=== PATIENT | female | born 1995 | race Two or more races ===

== ENCOUNTER 2020-11-13 17:58 | Emergency (ER) | payer OTHER ==
[2020-11-13] MEDS ORDERED: predniSONE 20 MG TABLET (UD) PO ONE (18:25)
[2020-11-13] MEDS ORDERED: FAMOTIDINE 20 MG TABLET PO ONE (18:26)
[2020-11-13] MEDS ORDERED: diphenhydrAMINE HCL 12.5 MG/5 ML UNIT-DOSE CUPS PO ONE (18:26)
[2020-11-13] MEDS ORDERED: diphenhydrAMINE HCL 25 MG CAPSULE (FP) PO ONE (18:27)
[2020-11-13] MEDS ORDERED: predniSONE 10 MG TABLET (UD) ONE (18:33)
[2020-11-13 18:37] VITALS: BP 128/84; PULSE 82; TEMP 98.9; BMI 41.1
== END 2020-11-13 20:32 | disposition home or self-care (01) ==
LOC: FER 17:58
DX: T78.40XA Allergy, unspecified, initial encounter (principal)
CPT/HCPCS: 99283-25